=== PATIENT | male | born 1990 | race Caucasian/White ===

== ENCOUNTER → 2023-09-29 15:50 | Outpatient (REF) | payer BC, SELFPAY | LOC: HWRAD 15:50 | PROVIDERS: ATTENDING PHYSICIAN Physician Assistant | DX: S49.91XA Unspecified injury of right shoulder and upper arm, initial encounter (principal) | CPT/HCPCS: 73030 ==

== ENCOUNTER → 2023-10-16 06:35 | Outpatient (REF) | payer BC, SELFPAY ==
[2023-10-16 08:44] LABS: % Eosinophils 1.7 % (0-6); % Immature Granulocytes 0.3 % (0-0.5); % Lymphocytes 36.5 % (20.5-51.1); % Monocytes 9.4 % (1.7-9.3); % Neutrophils 51.1 % (42.2-75.2); Absolute Basophils 0.1 10^3/uL (0-0.2); Absolute Eosinophils 0.1 10^3/uL (0-0.7); Absolute Lymphocytes 2.2 10^3/uL (1.2-3.4); Absolute Monocytes 0.6 10^3/uL (0.1-0.6); Hematocrit 45.6 % (39.0-52.0); Hemoglobin 16.3 g/dL (13.0-18.0); Mean Corp Hgb Conc. 35.7 g/dL (33.0-37.0); Mean Corpuscular Hgb 29.8 pg (27.0-31.0); Mean Corpuscular Volume 83.4 fL (80.0-94.0); Mean Platelet Volume 9.6 fL (7.4-10.4); Nucleated Red Blood Cells % 0 % (-); Platelet Count 256 10^3/uL (130-400); Red Blood Cell Count 5.47 10^6/uL (4.70-6.10); Red Cell Dist. Width 11.6 % (11.5-14.5); White Blood Cell Count 5.9 10^3/uL (4.8-10.8)
[2023-10-16 09:19] LABS: Albumin 4.7 g/dl (3.5-5.0); Blood Urea Nitrogen 20 mg/dl (9-20); Calcium 9.5 mg/dl (8.4-10.2); Carbon Dioxide 23 mmol/L (22-30); Chloride 106 mmol/L (98-107); HDL Cholesterol 35 mg/dl; LDL Cholesterol, Calculated 112 mg/dl; Potassium 4.9 mmol/L (3.5-5.1); Sodium 136 mmol/L (135-145); Total Bilirubin 0.8 mg/dl (0.2-1.3); Total Cholesterol 172 mg/dl (50-199); Total Protein 7.1 g/dl (6.3-8.2); Triglyceride 126 mg/dl (10-149); Very Low Density Lipoprotein 25 mg/dl (0-30); eGFR > 60.00
[2023-10-16 09:23] LABS: ALT (SGPT) 31 U/L (0-50); AST (SGOT) 23 U/L (17-59); Alkaline Phosphatase 51 U/L (38-126); Glucose 98 mg/dl (70-99); Iron 136 ug/dl (49-181)
[2023-10-16 09:27] LABS: Percent Saturation 43 % (20-50); Total Iron Binding Capacity 312 ug/dl (261-462)
[2023-10-16 10:21] LABS: Free T4 1.06 ng/dl (0.78-2.19); Vitamin D, 25-OH*** 37.5 ng/mL (30-80)
[2023-10-16 10:35] LABS: TSH 1.92 uIU/ml (0.47-4.68)
[2023-10-16 14:35] LABS: Glycohemoglobin (HgbA1c) 5.1 % (4.0-5.6)
== END ==
LOC: MRI 3T 06:35
PROVIDERS: ATTENDING PHYSICIAN Physician Assistant
DX: S49.91XA Unspecified injury of right shoulder and upper arm, initial encounter (principal); Z00.00 Encounter for general adult medical examination without abnormal findings; Z13.9 Encounter for screening, unspecified; I10 Essential (primary) hypertension; E83.19 Other disorders of iron metabolism; F90.2 Attention-deficit hyperactivity disorder, combined type; F51.01 Primary insomnia; F41.1 Generalized anxiety disorder; F33.0 Major depressive disorder, recurrent, mild; E78.2 Mixed hyperlipidemia; E66.09 Other obesity due to excess calories; Z68.33 Body mass index [BMI] 33.0-33.9, adult; R05.1 Acute cough; R11.0 Nausea
CPT/HCPCS: 36415; 73221; 80053; 80061; 82306; 82728; 83036; 83540; 83550; 84439; 84443; 85025

== ENCOUNTER → 2024-11-28 06:12 | Outpatient (REF) | payer BC, SELFPAY ==
[2024-11-28 10:01] LABS: % Eosinophils 3.1 % (0-6); % Immature Granulocytes 0.4 % (0-0.5); % Lymphocytes 33.2 % (20.5-51.1); % Monocytes 10.7 % (1.7-9.3); % Neutrophils 51.6 % (42.2-75.2); Absolute Basophils 0.1 10^3/uL (0-0.2); Absolute Eosinophils 0.2 10^3/uL (0-0.7); Absolute Lymphocytes 2.2 10^3/uL (1.2-3.4); Absolute Monocytes 0.7 10^3/uL (0.1-0.6); Absolute Neutrophils 3.5 10^3/uL (1.4-6.5); Hematocrit 45.2 % (39.0-52.0); Hemoglobin 15.9 g/dL (13.0-18.0); Mean Corp Hgb Conc. 35.2 g/dL (33.0-37.0); Mean Corpuscular Hgb 29.8 pg (27.0-31.0); Mean Corpuscular Volume 84.6 fL (80.0-94.0); Mean Platelet Volume 9.9 fL (7.4-10.4); Nucleated Red Blood Cells % 0 % (-); Platelet Count 244 10^3/uL (130-400); Red Blood Cell Count 5.34 10^6/uL (4.70-6.10); Red Cell Dist. Width 12.1 % (11.5-14.5); White Blood Cell Count 6.7 10^3/uL (4.8-10.8)
[2024-11-28 10:46] LABS: Vitamin D, 25-OH*** 28.6 ng/mL (30-80)
[2024-11-28 10:57] LABS: ALT (SGPT) 35 U/L (0-50); AST (SGOT) 21 U/L (17-59); Albumin 4.4 g/dl (3.5-5.0); Alkaline Phosphatase 41 U/L (38-126); Blood Urea Nitrogen 14 mg/dl (9-20); Calcium 8.9 mg/dl (8.4-10.2); Carbon Dioxide 22 mmol/L (22-30); Chloride 111 mmol/L (98-107); Glucose 97 mg/dl (70-99); HDL Cholesterol 30 mg/dl; Iron 124 ug/dl (49-181); LDL Cholesterol, Calculated 120 mg/dl; Potassium 4.5 mmol/L (3.5-5.1); Sodium 141 mmol/L (135-145); Total Bilirubin 0.5 mg/dl (0.2-1.3); Total Cholesterol 178 mg/dl (50-199); Total Protein 6.6 g/dl (6.3-8.2); Triglyceride 143 mg/dl (10-149); Very Low Density Lipoprotein 28 mg/dl (0-30); eGFR > 60.00
[2024-11-28 10:59] LABS: TSH Reflex To Free T4 3.27 uIU/ml (0.47-4.68)
[2024-11-28 11:07] LABS: Percent Saturation 42 % (20-50); Total Iron Binding Capacity 295 ug/dl (261-462)
[2024-11-28 11:35] LABS: Glycohemoglobin (HgbA1c) 4.9 % (4.0-5.6)
== END ==
LOC: HWLAB 06:12
PROVIDERS: ATTENDING PHYSICIAN Physician Assistant Medical
DX: M25.812 Other specified joint disorders, left shoulder (principal); I10 Essential (primary) hypertension; E83.19 Other disorders of iron metabolism; F90.2 Attention-deficit hyperactivity disorder, combined type; F51.01 Primary insomnia; F41.1 Generalized anxiety disorder; F33.0 Major depressive disorder, recurrent, mild; E78.2 Mixed hyperlipidemia; Z68.33 Body mass index [BMI] 33.0-33.9, adult; K76.0 Fatty (change of) liver, not elsewhere classified; M54.50 Low back pain, unspecified; M25.561 Pain in right knee; G89.29 Other chronic pain; K92.1 Melena
CPT/HCPCS: 36415; 72110; 73564; 80053; 80061; 82306; 82728; 83036; 83540; 83550; 84443; 85025

== ENCOUNTER → 2024-12-01 07:23 | Outpatient (REF) | payer BC, SELFPAY | LOC: HWRAD 07:23 | PROVIDERS: ATTENDING PHYSICIAN Physician Assistant Medical | DX: K76.0 Fatty (change of) liver, not elsewhere classified (principal) | CPT/HCPCS: 76700 ==

== ENCOUNTER → 2025-05-22 15:48 | Outpatient (REF) | payer BC, SELFPAY | LOC: REG 15:48 | PROVIDERS: ATTENDING PHYSICIAN Physician Assistant Medical | DX: R05.3 Chronic cough (principal) | CPT/HCPCS: 71046 ==